=== PATIENT | male | born 1945 | race Caucasian/White ===

== ENCOUNTER 2020-11-07 02:20 | Observation (INO) | payer OTHER, MEDICARE ==
[~2020-11-07] VITALS: Ht 185.4 cm; Wt 113.7 kg
[2020-11-07 02:53] LABS: BASOPHILS ABSOLUTE AUTO 0.12 K/mm3 (0.00-0.23); BASOPHILS PERCENT AUTO 1 % (0-2); EOSINOPHILS ABSOLUTE AUTO 0.23 K/mm3 (0.00-0.68); EOSINOPHILS PERCENT AUTO 2 % (0-6); Hematocrit 43.5 % (37.0-53.0); IMMATURE GRAN ABSOLUTE AUTO 0.06 K/mm3 (0.00-0.10); IMMATURE GRAN PERCENT AUTO 0 % (0-1); LYMPHOCYTES ABSOLUTE AUTO 1.86 K/mm3 (0.84-5.20); LYMPHOCYTES PERCENT AUTO 13 % (21-46); MONOCYTES ABSOLUTE AUTO 1.42 K/mm3 (0.16-1.47); MONOCYTES PERCENT AUTO 10 % (4-13); Mean Corpuscular HGB 28.9 pg (26.0-34.0); Mean Corpuscular HGB Conc 32.2 g/dL (31.5-36.5); Mean Corpuscular Volume 90 fL (80-100); Mean Platelet Volume 9.9 fL (9.1-12.4); NEUTROPHILS ABSOLUTE AUTO 10.86 K/mm3 (1.96-9.15); NEUTROPHILS PERCENT AUTO 75 % (41-73); Platelet Count 253 K/mm3 (150-400); RDW Coefficient Variation 13.3 % (11.7-14.2); RDW Standard Deviation 43.5 fL (35.1-46.3); Red Blood Cell Count 4.85 M/mm3 (4.30-5.90); White Blood Cell Count 14.55 K/mm3 (4.00-11.30)
[2020-11-07 03:08] LABS: International Normalized Ratio 1.03
[2020-11-07 03:15] LABS: Alanine Aminotransfer (ALT/SGP 29 U/L (12-78); Albumin, Blood 3.8 g/dL (3.4-5.0); Alk Phos 88 U/L (50-136); Anion Gap 12 mmol/L (6-16); Aspartate Aminotrans (AST/SGOT 25 U/L (12-37); Bilirubin, Total 0.7 mg/dL (0.1-1.0); Blood Urea Nitrogen 17 mg/dL (8-24); Bun/Creatinine Ratio 21.7 (12.0-20.0); CO2, Blood 25 mmol/L (21-32); Calcium, Blood 9.2 mg/dL (8.5-10.1); Chloride, Blood 101 mmol/L (98-108); Creatinine, Blood 0.78 mg/dL (0.60-1.20); Globulin, Blood 3.7 g/dL (2.2-4.0); Glomerular Filtration Rate >60 (60-); Glucose, Blood 208 mg/dL (70-99); Magnesium, Blood 1.7 mg/dL (1.6-2.4); Potassium, Blood 4.2 mmol/L (3.5-5.5); Sodium, Blood 138 mmol/L (136-145); Total Protein, Blood 7.5 g/dL (6.4-8.2); Troponin I <0.015 ng/mL (0.000-0.040)
[2020-11-07] MEDS ORDERED: ELIQUIS5 MG PO (05:31)
[2020-11-07] MEDS ORDERED: ASCO500 PO (05:40)
[2020-11-07] MEDS ORDERED: LIPITOR80 MG PO (05:41)
[2020-11-07] MEDS ORDERED: PERIDEX15 ML MM (05:43)
[2020-11-07] MEDS ORDERED: VITAMIN D325 MC3 PO (05:44)
[2020-11-07] MEDS ORDERED: LANOXIN125 MCG PO (05:45)
[2020-11-07] MEDS ORDERED: FEROSUL325 M1 PO (05:45)
[2020-11-07] MEDS ORDERED: BENADRYL25 MG PO (05:45)
[2020-11-07] MEDS ORDERED: GLIP10 PO (05:46)
[2020-11-07] MEDS ORDERED: FINA5 PO (05:46)
[2020-11-07] MEDS ORDERED: LEVSOD150 PO (05:48)
[2020-11-07] MEDS ORDERED: Prinivil10 MG PO (05:48)
[2020-11-07] MEDS ORDERED: Norco 10-325 T1 EACH PO (05:48)
[2020-11-07] MEDS ORDERED: METF500 PO (05:51)
[2020-11-07] MEDS ORDERED: MSM1000 M3 PO (05:52)
[2020-11-07] MEDS ORDERED: DAILY-VITE1 EAC1 PO (05:54)
[2020-11-07] MEDS ORDERED: Lopressor 50 mg50 MG PO (05:54)
[2020-11-07] MEDS ORDERED: OMEP20ER PO (05:55)
[2020-11-07] MEDS ORDERED: PREG75 PO (05:55)
[2020-11-07] MEDS ORDERED: PYRI100 PO (05:56)
[2020-11-07] MEDS ORDERED: SILDENAFIL CIT100 MG PO (05:57)
[2020-11-07] MEDS ORDERED: B-1100 M1 PO (05:58)
[2020-11-07] MEDS ORDERED: TAMS.4ER PO (05:58)
[2020-11-07 10:55] LABS: BASOPHILS ABSOLUTE AUTO 0.07 K/mm3 (0.00-0.23); BASOPHILS PERCENT AUTO 1 % (0-2); EOSINOPHILS ABSOLUTE AUTO 0.08 K/mm3 (0.00-0.68); EOSINOPHILS PERCENT AUTO 1 % (0-6); Hematocrit 42.2 % (37.0-53.0); Hemoglobin 13.5 g/dL (13.5-17.5); IMMATURE GRAN ABSOLUTE AUTO 0.03 K/mm3 (0.00-0.10); IMMATURE GRAN PERCENT AUTO 0 % (0-1); LYMPHOCYTES ABSOLUTE AUTO 1.73 K/mm3 (0.84-5.20); LYMPHOCYTES PERCENT AUTO 13 % (21-46); MONOCYTES ABSOLUTE AUTO 1.43 K/mm3 (0.16-1.47); MONOCYTES PERCENT AUTO 11 % (4-13); Mean Corpuscular HGB 28.4 pg (26.0-34.0); Mean Corpuscular Volume 89 fL (80-100); Mean Platelet Volume 9.9 fL (9.1-12.4); NEUTROPHILS ABSOLUTE AUTO 9.66 K/mm3 (1.96-9.15); NEUTROPHILS PERCENT AUTO 74 % (41-73); Platelet Count 255 K/mm3 (150-400); RDW Coefficient Variation 13.5 % (11.7-14.2); Red Blood Cell Count 4.75 M/mm3 (4.30-5.90)
[2020-11-07 11:09] LABS: International Normalized Ratio 1.02; Prothrombin Time Results 10.9 Sec (9.7-11.5)
[2020-11-07 11:10] LABS: Alanine Aminotransfer (ALT/SGP 29 U/L (12-78); Albumin, Blood 3.8 g/dL (3.4-5.0); Alk Phos 84 U/L (50-136); Anion Gap 7 mmol/L (6-16); Aspartate Aminotrans (AST/SGOT 30 U/L (12-37); Bilirubin, Total 0.8 mg/dL (0.1-1.0); Blood Urea Nitrogen 14 mg/dL (8-24); CO2, Blood 29 mmol/L (21-32); Calcium, Blood 9.1 mg/dL (8.5-10.1); Chloride, Blood 102 mmol/L (98-108); Creatinine, Blood 0.74 mg/dL (0.60-1.20); Globulin, Blood 3.7 g/dL (2.2-4.0); Glomerular Filtration Rate >60 (60-); Glucose, Blood 204 mg/dL (70-99); Potassium, Blood 3.8 mmol/L (3.5-5.5); Sodium, Blood 138 mmol/L (136-145); Total Protein, Blood 7.5 g/dL (6.4-8.2)
[2020-11-07 12:04] LABS: Creatine Kinase MB 1.8 ng/mL (0.0-3.6); Creatine Kinase MB Index 0.2 (0.0-4.0)
--- NOTE | 2020-11-07 12:06 | NUR ---
Echocardiogram completed.
--- NOTE | 2020-11-07 17:55 | NUR ---
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 DENIES SOB//CP. PT HAD NORCO X1 FOR BILAT KNEE PAIN AND WAS EFFECTIVE. ECHO DONE TODAY EF AT 65-70%. PT REMAINS A&OX3, CONFUSED AND FORGETFUL AT TIMES. USES URINAL FOR VOIDING NO BM REPORTED FOR THE SHIFT, GOOD APPETITE. NS STILL RUNNING AT 75MLS/HR. NO OTHER ISSUES ENCOUNTERED FOR THE SHIFT, PT PLEASANT AND COOPERATIVE, ABLE TO MAKE NEEDS KNOWN, BED ALARM ON FOR SAFETY ATTEMPTED TO GET OUT OF BED X1. WILL MONITOR UNTIL END OF SHIFT
[2020-11-07 20:10] LABS: Creatine Kinase MB 1.7 ng/mL (0.0-3.6); Creatine Kinase MB Index 0.1 (0.0-4.0)
[2020-11-08 05:04] LABS: BASOPHILS ABSOLUTE AUTO 0.07 K/mm3 (0.00-0.23); BASOPHILS PERCENT AUTO 1 % (0-2); EOSINOPHILS ABSOLUTE AUTO 0.37 K/mm3 (0.00-0.68); EOSINOPHILS PERCENT AUTO 3 % (0-6); Hematocrit 40.3 % (37.0-53.0); IMMATURE GRAN ABSOLUTE AUTO 0.04 K/mm3 (0.00-0.10); IMMATURE GRAN PERCENT AUTO 0 % (0-1); LYMPHOCYTES ABSOLUTE AUTO 2.25 K/mm3 (0.84-5.20); LYMPHOCYTES PERCENT AUTO 20 % (21-46); MONOCYTES ABSOLUTE AUTO 1.32 K/mm3 (0.16-1.47); MONOCYTES PERCENT AUTO 12 % (4-13); Mean Corpuscular HGB 28.7 pg (26.0-34.0); Mean Corpuscular HGB Conc 32.3 g/dL (31.5-36.5); Mean Corpuscular Volume 89 fL (80-100); Mean Platelet Volume 9.9 fL (9.1-12.4); NEUTROPHILS ABSOLUTE AUTO 6.97 K/mm3 (1.96-9.15); NEUTROPHILS PERCENT AUTO 63 % (41-73); Platelet Count 240 K/mm3 (150-400); RDW Coefficient Variation 13.8 % (11.7-14.2); RDW Standard Deviation 44.9 fL (35.1-46.3); Red Blood Cell Count 4.53 M/mm3 (4.30-5.90); White Blood Cell Count 11.02 K/mm3 (4.00-11.30)
[2020-11-08 05:17] LABS: International Normalized Ratio 1.03
[2020-11-08 05:22] LABS: Alanine Aminotransfer (ALT/SGP 26 U/L (12-78); Albumin, Blood 3.5 g/dL (3.4-5.0); Alk Phos 73 U/L (50-136); Anion Gap 5 mmol/L (6-16); Aspartate Aminotrans (AST/SGOT 32 U/L (12-37); Bilirubin, Total 0.9 mg/dL (0.1-1.0); Blood Urea Nitrogen 13 mg/dL (8-24); Bun/Creatinine Ratio 20.2 (12.0-20.0); CO2, Blood 28 mmol/L (21-32); Calcium, Blood 8.7 mg/dL (8.5-10.1); Chloride, Blood 107 mmol/L (98-108); Creatinine, Blood 0.65 mg/dL (0.60-1.20); Globulin, Blood 3.6 g/dL (2.2-4.0); Glomerular Filtration Rate >60 (60-); Glucose, Blood 207 mg/dL (70-99); Potassium, Blood 3.7 mmol/L (3.5-5.5); Sodium, Blood 140 mmol/L (136-145); Total Protein, Blood 7.1 g/dL (6.4-8.2)
--- NOTE | 2020-11-08 05:53 | NUR ---
SHIFT SUMMARY PT RESTED WELL THROUGH NIGHT. INTERMITTENT CONFUSION, BUT ABLE TO MAKE NEEDS KNOWN. SATS >90% ON ROOM AIR. TELE A FIB - RATE INCREASING TO 130'S-140'S, RN TURNED ON CARDIZEM GTT AT 0345 @5MG/HR, THEN INCREASED TO 10MG/HR AT 0500. NO C/O CHEST PAIN. INCONTINENT AND CONTINENT VOIDS, NO BM. TURNS FREQUENTLY. VSS. CALL LIGHT WITHIN REACH, BED IN LOWEST POSITION. WILL CONTINUE TO MONITOR. BED ALARM ON.
--- NOTE | 2020-11-08 15:55 | NUR ---
DISCHARGE PT ALERT AND ORIENTED. VS STABLE. DILTIAZEM DC'D THIS AM AT APPROXIMATELY 1000. BP STABLE. HR AFIB 80'S. DR. JIMÉNEZ IN WITH PLANS FOR DISCHARGE. PT ABLE TO AMBULATE WITH THERAPY TO THE BATHROOM WITH A FWW. DISCHARGE INSTRUCTIONS PROVIDED TO PT AND . ALL QUESTIONS ANSWERED. IV REMOVED. PT TAKEN OUT BY WC.
== END 2020-11-08 16:02 | disposition home health service (06) ==
LOC: ER 02:20 → PCU 03:58
PROVIDERS: Emergency Medicine; Internal Medicine; ADMIT Internal Medicine
DX: I48.91 Unspecified atrial fibrillation (principal); E11.9 Type 2 diabetes mellitus without complications; R29.6 Repeated falls; M25.562 Pain in left knee; M25.561 Pain in right knee
CPT/HCPCS: 36415; 71045; 73560-LT; 73560-RT; 73660; 80053; 80162; 82550; 82553; 82947; 83735; 83880; 84484; 85025; 85610; 93005; 93010; 93306; 96365; 96375; 96376; 97110; 97116; 97162; 97166; 97530; 99285-25; A9270; G0378; J3010; J3475; J7030